=== PATIENT | female | born 1935 | race Caucasian/White ===

== ENCOUNTER 2016-06-19 08:36 | Emergency (ER) | payer MEDICARE, BC ==
--- NOTE | 2016-06-19 09:43 | EDM.PDOC ---
ED HPI GI/ABDOMINAL - General Chief Complaint: Gastrointestinal Problem Stated Complaint: [facility] Time Seen by Provider: 06/19/16 09:37 - History of Present Illness INITIAL COMMENTS - FREE TEXT/NARRATIVE: 81-year-old female presents to the emergency room with abdominal discomfort nausea vomiting diarrhea. She awoke around 4:30 this morning with some crampy left-sided abdominal discomfort or 7:00 this morning she had several episodes of loose stools they are watery. This was followed by significant nausea and a couple episodes of vomiting. Patient is doing much better after receiving Zofran by EMS. Patient denies any chest pain chest pressure breathing difficulties or shortness of breath. - Related Data Allergies/ADRs: Allergies Allergy/AdvReac Type Severity Reaction Status Date / Time acetaminophen [From Percocet] Allergy Dizziness Verified 06/19/16 08:50 aspirin Allergy Swollen Verified 06/19/16 08:50 Tongue ciprofloxacin Allergy Hallucinati Verified 06/19/16 08:50 ons codeine Allergy Vomiting Verified 06/19/16 08:50 hydrocodone Allergy Dizziness Verified 06/19/16 08:50 metronidazole [From Flagyl] Allergy Hallucinati Verified 06/19/16 08:50 ons mupirocin [From Bactroban] Allergy Rash Verified 06/19/16 08:50 oxycodone [From Percocet] Allergy Dizziness Verified 06/19/16 08:50 Sulfa (Sulfonamide Allergy Vomiting Verified 06/19/16 08:50 Antibiotics) Tetracyclines Allergy Hives Verified 06/19/16 08:50 aerival Allergy Other Uncoded 05/12/16 18:16 deludin Allergy Airway Uncoded 05/12/16 18:16 Tightness hycosamine Allergy Dizziness Uncoded 05/12/16 18:16 Home Meds: Home Meds Atenolol 25 mg PO DAILY 05/12/16 [History] Levothyroxine [Synthroid] 50 mcg PO ACBREAKFAST 05/12/16 [History] Potassium Chloride 20 meq PO TID 05/12/16 [History] Pravastatin Sodium [Pravastatin (Pravachol)] 40 mg PO BEDTIME 05/12/16 [History] Triamterene/Hydrochlorothiazid [Triamterene-HCTZ 37.5-25 MG] 1 tab PO DAILY [History] Ca Citrate/Mgox/Vit D3/B6/Min [Calcium Citrate Plus Tablet] 1 tab PO DAILY 06/19 [History] Magnesium 400 mg PO DAILY 06/19/16 [History] Multivitamin [Multi-Vitamin Daily] 1 tab PO DAILY 06/19/16 [History] Omeprazole 20 mg PO DAILY 06/19/16 [History] Ondansetron [Zofran ODT] 4 mg PO Q8H PRN #6 tab.dis 06/19/16 [Rx] Past Medical History HEENT History: Reports: Cataract Other HEENT History: wears glasses Cardiovascular History: Reports: High cholesterol, Hypertension Gastrointestinal History: Reports: Diverticulosis, GERD, Hiatal hernia Musculoskeletal History: Reports: Osteoarthritis Endocrine/Metabolic History: Reports: Hypothyroidism - Past Surgical History GI Surgical History: Reports: Appendectomy, Cholecystectomy, Colonoscopy Other GI Surgeries/Procedures: hemmorhoidectomy Female Surgical History: Reports: Hysterectomy Social & Family History - Tobacco Use Smoking Status *Q: Never Smoker Second Hand Smoke Exposure: No - Caffeine Use Caffeine Use: Reports: Coffee - Recreational Drug Use Recreational Drug Use: No ED ROS GENERAL - Review of Systems Review Of Systems: See Below Constitutional: Denies: fever, chills HEENT: Reports: No symptoms Respiratory: Reports: No Symptoms Cardiovascular: Reports: No symptoms GI/Abdominal: Reports: Abdominal pain (Has mild cramping but otherwise has not had any pain she does not have any pain at this time), Diarrhea, Nausea, Vomiting. Denies: Constipation : Reports: no symptoms Musculoskeletal: Reports: no symptoms Neurological: Reports: No Symptoms ED EXAM, GI/ABD - Physical Exam Exam: See Below Exam Limited By: No limitations General Appearance: alert, no apparent distress, other (Patient brought in by EMS vital signs stable she is doing much better after receiving Zofran during transport) Head: atraumatic, normocephalic Neck: normal inspection, supple, non-tender, full range of motion Respiratory/Chest: no respiratory distress, lungs clear, normal breath sounds Cardiovascular: regular rate, rhythm, no edema, systolic murmur (One to 2/6 systolic murmur heard best in the right upper sternal border this is not new.) GI/Abdominal: normal bowel sounds, soft, non tender, no distention. No: tenderness, distention, guarding, rebound Back Exam: normal inspection. No: CVA tenderness (L), CVA tenderness (R) Course - Vital Signs Last Recorded V/S: Last Vital Signs Temp 36.3 C 06/19/16 08:44 Pulse 59 L 06/19/16 08:44 Resp 12 06/19/16 08:44 BP 157/65 H 06/19/16 08:44 Pulse Ox 96 06/19/16 08:44 - Orders/Labs/Meds Orders: Active Orders 24 hr Category Date Time Status CULTURE URINE [RM] Stat Lab 06/19/16 11:56 Uncollected Lactated Ringers [Ringers, Lactated] 1,000 ml Med 06/19/16 09:45 Active IV ASDIRECTED Medication Orders Lactated Ringer's (Ringers, Lactated) 1,000 mls @ 125 mls/hr IV ASDIRECTED ISABELLA Last Admin: 06/19/16 10:15 Dose: 125 mls/hr Labs: Laboratory Tests 06/19/16 06/19/16 06/19/16 Range/Units 10:12 10:12 11:25 WBC 10.54 H (3.98-10.04) K/mm3 RBC 5.01 (3.98-5.22) M/mm3 Hgb 14.3 (11.2-15.7) gm/L Hct 42.2 (34.1-44.9) % MCV 84.2 (79.4-94.8) fl MCH 28.5 (25.6-32.2) pg MCHC 33.9 (32.2-35.5) g/dl RDW Std Deviation 42.8 (36.4-46.3) fL Plt Count 165 L (182-369) K/mm3 MPV 10.6 (9.4-12.3) fl Neutrophils % (Manual) 77 H (40-60) % Band Neutrophils % 8 (0-10) % Lymphocytes % (Manual) 10 L (20-40) % Atypical Lymphs % 0 % Monocytes % (Manual) 3 (2-10) % Eosinophils % (Manual) 1 (0.7-5.8) % Basophils % (Manual) 1 (0.1-1.2) Platelet Estimate Adequate RBC Morph Comment Normal Sodium 138 (136-145) mEq/L Potassium 4.3 (3.5-5.1) mEq/L Chloride 104 (98-107) mEq/L Carbon Dioxide 26 (21-32) mEq/L Anion Gap 12.3 (5-15) BUN 24 H (7-18) mg/dL Creatinine 0.9 (0.55-1.02) mg/dL Est Cr Clr Drug Dosing 43.77 mL/min Estimated GFR (MDRD) > 60 (>60) mL/min BUN/Creatinine Ratio 26.7 H (14-18) Glucose 106 (83-115) mg/dL Calcium 9.2 (8.5-10.1) mg/dL Total Bilirubin 0.5 (0.2-1.0) mg/dL AST 22 (15-37) U/L ALT 28 (14-59) U/L Alkaline Phosphatase 63 (46-116) U/L Total Protein 6.8 (6.4-8.2) g/dl Albumin 3.8 (3.4-5.0) g/dl Globulin 3.0 gm/dL Albumin/Globulin Ratio 1.3 (1-2) Urine Color Yellow (Yellow) Urine Appearance Clear (Clear) Urine pH 6.0 (5.0-8.0) Ur Specific [place] 1.020 (1.005-1.030) Urine Protein Negative (Negative) Urine Glucose (UA) Negative (Negative) Urine Ketones Negative (Negative) Urine Occult Blood Negative (Negative) Urine Nitrite Negative (Negative) Urine Bilirubin Negative (Negative) Urine Urobilinogen 0.2 (0.2-1.0) Ur Leukocyte Esterase 1+ H (Negative) Urine RBC Not seen (0-5) /hpf Urine WBC 5-10 H (0-5) /hpf Ur Epithelial Cells 0-5 (0-5) /hpf Urine Bacteria Few (FEW) /hpf Urine Mucus Few (FEW) /hpf Meds: Medications Generic Name Dose Route Start Last Admin Trade Name Freq PRN Reason Stop Dose Admin Lactated Ringer's 1,000 mls @ 125 mls/hr 06/19/16 09:45 06/19/16 10:15 Ringers, Lactated IV 125 mls/hr ASDIRECTED [facility] Administration - Re-Assessments/Exams Free Text/Narrative Re-Assessment/Exam: 06/19/16 12:01 Patient is received fluids and continues to feel much better. Labs are possibly suspicious of an early urinary tract infection. The patient is not having any symptoms consistent with UTI at this point it would like to hold off on therapy as she has multiple reactions to many different medications will await culture and sensitivity prior to initiating therapy and the patient agrees to followup with her regular physician on Sunday. Departure - Departure Time of Disposition: 12:02 Disposition: Home, Self-Care 01 Clinical Impression: Gastroenteritis Prescriptions: Ondansetron [Zofran ODT] 4 mg PO Q8H PRN #6 tab.dis PRN Reason: Nausea/Vomiting Forms: ED Department Discharge Additional Instructions: Return to the emergency room with any questions or problems. Continue your probiotics. You've been given a prescription for Zofran to help with nausea and vomiting use as directed as needed. Your urine is possibly suggestive of a UTI cultures are pending. Followup with your regular physician on Sunday for recheck. Clear liquid diet for the next 24 hours then slowly advance as tolerated. - My Orders Last 24 Hours: My Active Orders 06/19/16 09:45 Lactated Ringers [Ringers, Lactated] 1,000 ml IV ASDIRECTED 06/19/16 11:56 CULTURE URINE [RM] Stat - Assessment/Plan Last 24 Hours: My Active Orders 06/19/16 09:45 Lactated Ringers [Ringers, Lactated] 1,000 ml IV ASDIRECTED 06/19/16 11:56 CULTURE URINE [RM] Stat
[2016-06-19] MEDS ORDERED: Lactated Ringers 1,000 ML IV SCH (09:45)
--- NOTE | 2016-06-19 10:27 | CR ---
Abdomen: Supine and upright views of the abdomen were obtained. Comparison: No previous study. Surgical clips are seen from prior cholecystectomy. Calcifications are seen within the pelvis which are compatible with phleboliths. Bony structures appear within normal limits for the patient's age. No free air is seen. Bowel gas pattern appears normal. Impression: 1. Incidental findings. Diagnostic code #2
[2016-06-19 12:21] VITALS: BP 110/70
== END 2016-06-19 12:21 | disposition home or self-care (01) ==
LOC: JD.ED 08:36 → SUPCPDRO 08:36 → JD.ED 12:21
DX: K52.9 Noninfective gastroenteritis and colitis, unspecified (principal); E78.00 Pure hypercholesterolemia, unspecified; I10 Essential (primary) hypertension; K21.9 Gastro-esophageal reflux disease without esophagitis; E03.9 Hypothyroidism, unspecified; K44.9 Diaphragmatic hernia without obstruction or gangrene; Z79.899 Other long term (current) drug therapy; Z88.8 Allergy status to other drugs, medicaments and biological substances
CPT/HCPCS: 36415; 74020; 80053; 81001; 85025; 87086; 87804; 96360; 96361; 99285; J7120; 99283

== ENCOUNTER 2020-11-10 16:55 | Emergency (ER) | payer MEDICARE, BC ==
[2020-11-10] MEDS ORDERED: Aspirin 81 MG Tab.Chew PO ONE (17:48)
--- NOTE | 2020-11-10 17:48 | EDM.PDOC ---
ED HPI GENERAL MEDICAL PROBLEM - General Chief Complaint: Cardiovascular Problem Stated Complaint: SENT BY DR TILLEY Time Seen by Provider: 11/10/20 17:43 Source of Information: Reports: Patient, Family (friend) History Limitations: Reports: No Limitations - History of Present Illness INITIAL COMMENTS - FREE TEXT/NARRATIVE: 85-year-old female presents to the ED for evaluation of central chest pain which she describes as burning in nature which started last evening about 1900 hrs. and lasted until 2200 hrs. When she awoke this morning she still had faint retrosternal chest discomfort. Further history suggested she has been developing this chest pain on minimal exertion over the last week to 12 days. It goes away usually when she rests. Last night was the most severe the pain has ever been and lasted the longest( 3hrs) and was unprovoked. She is scheduled for an ECG stress test tomorrow. She is known to have valvular heart disease and has seen Dr. Cruz ,scudding inspector from [place] yearly for the last 2 to 3 years. She states she did have an echocardiogram within the last 18 months. No previous history of myocardial infarction or stroke. Patient is al so been struggling with a lot of gastroesophageal reflux disease. She takes omeprazole on a as needed basis which is not all that helpful. She did describe the central chest pain that radiate up into her neck and mandible bilaterally as a burning discomfort. She did not take any aspirin last evening. She did see Dr. Stevenson in [facility] today and labs are coming back abnormal. After she left the clinic he later called her and advised her to come to the emergency room for evaluation. On review of the notes sent up by Dr. Stevenson ,her troponin I is listed as markedly elevated at 6.238. The patient is pain-free at present. ECG done now reveals T wave inversion in the inferior wall with Q waves in leads III and aVF suggesting inferior wall ischemia but there is no significant change in the baseline to suggest acuity. Patient will be treated like a non-STEMI. She will be given aspirin 324 mg chewed. She will be started on heparin infusion with 4000 unit bolus and then 1000 units an hour. Onset: Sudden Onset Date: 11/09/20 Onset Time: 19:00 (And was very intense until about 2200 hrs.) Duration: Hour(s):, Constant (Was caused and then slowly abated overnight.) Location: Reports: Chest (Central chest burning discomfort radiating across left and right anterior chest and up into her neck and throat and mandible. She does not remember he went through to her back at all.) Quality: Reports: Ache, Burning, Pressure Severity: Severe (Pain last night was 10 of the 10. Currently she rates her current chest discomfort is perhaps a 1 out of 10.) Improves with: Reports: Other (Pain abated overnight on its own.) Worsens with: Reports: Movement (Walking a short distance will bring the chest pain back. Highly unstable angina.) Context: Reports: Other (Last night pain occurred at rest. Usually it has been occurring on minimal exertion such as a short walk or even getting dressed.). Denies: Activity, Exercise, Lifting, Sick Contact, Trauma Associated Symptoms: Reports: Chest Pain, Loss of Appetite, Shortness of Breath (Mild). Denies: Confusion, Cough, cough w sputum (History of present illness), Diaphoresis, Fever/Chills, Headaches, Malaise, Nausea/Vomiting, Rash, Seizure, Syncope, Weakness Treatments CIVIL ENGINEER HELPER: Reports: Other (see below) (Nothing other than what she is pr escribed.) - Related Data Allergies Allergy/AdvReac Type Severity Reaction Status Date / Time acetaminophen [From Percocet] Allergy Dizziness Verified 11/10/20 17:08 aspirin Allergy Swollen Verified 11/10/20 17:08 Tongue ciprofloxacin Allergy Hallucinati Verified 11/10/20 17:08 ons codeine Allergy Vomiting Verified 11/10/20 17:08 hydrocodone Allergy Dizziness Verified 11/10/20 17:08 metronidazole [From Flagyl] Allergy Hallucinati Verified 11/10/20 17:08 ons mupirocin [From Bactroban] Allergy Rash Verified 11/10/20 17:08 oxycodone [From Percocet] Allergy Dizziness Verified 11/10/20 17:08 Sulfa (Sulfonamide Allergy Vomiting Verified 11/10/20 17:08 Antibiotics) Tetracyclines Allergy Hives Verified 11/10/20 17:08 aerival Allergy Other Uncoded 11/10/20 17:08 deludin Allergy Airway Uncoded 11/10/20 17:08 Tightness hycosamine Allergy Dizziness Uncoded 11/10/20 17:08 Home Meds: Home Meds Levothyroxine [Synthroid] 50 mcg PO ACBREAKFAST 05/12/16 [History] Potassium Chloride 20 meq PO TID 05/12/16 [History] Pravastatin Sodium [Pravastatin (Pravachol)] 40 mg PO BEDTIME 05/12/16 [History] Triamterene/Hydrochlorothiazid [Triamterene-HCTZ 37.5-25 MG] 1 tab PO DAILY 05/12/16 [History] atenoloL [Atenolol] 25 mg PO DAILY 05/12/16 [History] Calcium Cit/Mgox/Vit D3/B6/Min [Calcium Citrate Plus Tablet] 1 tab PO DAILY 06/19/16 [History] Magnesium 400 mg PO ASDIRECTED 06/19/16 [History] Multivitamin [Multi-Vitamin Daily] 1 tab PO DAILY 06/19/16 [History] Omeprazole 20 mg PO DAILY 06/19/16 [History] Sertraline [Zoloft] 25 mg PO DAILY 11/10/20 [History] Past Medical History HEENT History: Reports: Cataract Other HEENT History: wears glasses Cardiovascular History: Reports: CAD, Heart Murmur (Patient does have known valvular heart disease with mitral insufficiency and aortic stenosis.), High Cholesterol, Hypertension. Denies: Heart Failure Gastrointestinal History: Reports: Diverticulosis, GERD (Seems to be worsened as of late.), Hiatal Hernia SPECIAL EDUCATION DIRECTOR History: Reports: Musculoskeletal History: Reports: Osteoarthritis Psychiatric History: Reports: Anxiety Endocrine/Metabolic History: Reports: Hypothyroidism - Past Surgical History GI Surgical History: Reports: Appendectomy, Cholecystectomy, Colonoscopy Other GI Surgeries/Procedures: hemmorhoidectomy Female Surgical History: Reports: Hysterectomy Social & Family History - Tobacco Use Tobacco Use Status *Q: Never Tobacco User Second Hand Smoke Exposure: No - Caffeine Use Caffeine Use: Reports: Coffee - Recreational Drug Use Recreational Drug Use: No - Living Situation & Occupation Living situation: Reports: Occupation: Retired ED ROS GENERAL - Review of Systems Review Of Systems: See Below Constitutional: Reports: Malaise, Fatigue, Decreased Appetite (Labs mildly decreased today.). Denies: Fever, Chills, Weight Loss HEENT: Reports: Glasses Respiratory: Reports: Shortness of Breath, Cough. Denies: Wheezing, Pleuritic Chest Pain, Sputum, Hemoptysis Cardiovascular: Reports: Chest Pain (Diffuse central chest discomfort radiating across both right left upper anterior chest into her neck and mandible last evening.), Blood Pressure Problem, Dyspnea on Exertion. Denies: Claudication, Edema, Lightheadedness, Orthopnea, Palpitations Endocrine: Reports: Fatigue GI/Abdominal: Reports: Constipation (Occasional problems), Other (She feels she gets heartburn on a daily basis.). Denies: Black Stool, Bloody Stool : Reports: Frequency, Incontinence (Urgent stress components.) Musculoskeletal: Reports: Neck Pain (occassional), Shoulder Pain (occassional), Back Pain, Joint Pain (Knees and hips at times.) Skin: Reports: No Symptoms Neurological: Reports: No Symptoms. Denies: Confusion, Dizziness, Headache, Pre-Existing Deficit, Seizure, Syncope, Trouble Speaking, Difficulty Walking, Weakness Psychiatric: Reports: No Symptoms Hematologic/Lymphatic: Reports: No Symptoms Immunologic: Reports: No Symptoms ED EXAM, GENERAL - Physical Exam Exam: See Below Exam Limited By: No Limitations General Appearance: Alert, WD/WN, No Apparent Distress, Anxious (Mildly anxious of course having been called by her primary care provider to come to the emergency room emergently.), Other (Temperature is 36.3 degrees. Heart rate was 67 and sinus. Respiratory 16 with O2 sats of 97% room air. Initial BP was mildly elevated at 162/78. It did come down to 126/73.) Eye Exam: Bilateral Eye: Normal Inspection (Previous cataract extractions and intraocular lens implants.), PERRL Throat/Mouth: Normal Inspection, Normal Lips, Normal Oropharynx. No: Normal Teeth Head: Atraumatic, Normocephalic Neck: Normal Inspection, Carotid Bruit (Faint right carotid artery bruit felt to be transmitted from aortic stenosis murmur), Limited Range of Motion (She has loss of 10 degrees lateral flexion and rotation. Also loss of 10 degrees flexion). No: Lymphadenopathy (L), Lymphadenopathy (R), Thyromegaly Respiratory/Chest: No Respiratory Distress, Normal Breath Sounds, No Accessory Muscle Use, Rales Cardiovascular: Normal Peripheral Pulses, Regular Rate, Rhythm, No Edema, No Gallop, No Murmur Peripheral Pulses: 2+: Carotid (L), Carotid (R), Posterior Tibial (L), Posterior Tibial (R), Dorsalis Pedis (L), Dorsalis Pedis (R) GI/Abdominal: Normal Bowel Sounds, Soft, Non-Tender, No Organomegaly, No Mass, Pelvis Stable Back Exam: Other (Mild kyphosis thoracic spine.). No: CVA Tenderness (L), CVA Tenderness (R), Paraspinal Tenderness, Vertebral Tenderness Extremities: Non-Tender, Other (Diminished internal and external rotation of both hips. Evidence of osteoarthritic changes both knees but neither joint is warm to palpation at this time) Neurological: Alert, Oriented, CN II-XII Intact, Normal Cognition Psychiatric: Normal Affect, Normal Mood Skin Exam: Warm, Dry, Intact, Normal Color #1 Interpretation EKG Date: 11/10/20 Time: : Rhythm: NSR Rate (Beats/Min): 68 [place]: LAD-Left [place] Deviation (Mild left axis deviation -10 degrees) P-Wave: Present (T wave inverted in leads V1 and V2 nonspecific finding left atrial hypertrophy) QRS: Other (Early R wave transition consider septal hypertrophy pattern there is left ventricular hypertrophy pattern Q waves appreciated leads III and aVF consider old inferior wall myocardial infarction associated with T wave inversion leads III and aVF.) ST-T: Other (T wave inversion in leads III and aVF) QT: Normal EKG Interpretation Comments: Abnormal ECG Course - Vital Signs Last Recorded V/S: Last Vital Signs Temp 36.3 C 11/10/20 17:06 Pulse 67 11/10/20 17:06 Resp 16 11/10/20 17:06 BP 162/78 H 11/10/20 17:06 Pulse Ox 97 11/10/20 17:06 - Orders/Labs/Meds Orders: Active Orders 24 hr Category Date Time Status Chest 1V Frontal [CR] Stat Exams 11/10/20 17:44 Taken CULTURE URINE [MREF] Stat Lab 11/10/20 19:19 Ordered Heparin Sodium/D5W [Heparin 25,000 Units in D5W 500 ML] Med 11/10/20 18:00 Active 25,000 units in 500 ml IV TITRATE Medication Orders Heparin Sodium/Dextrose (Heparin 25,000 Units In D5w 500 Ml) 25,000 units in 500 mls @ 20 mls/hr IV TITRATE ISABELLA Last Admin: 11/10/20 18:13 Dose: 1,000 units/hr, 20 mls/hr Documented by: RASHID Cosigned by: SHEREE Labs: Laboratory Tests 11/10/20 11/10/20 11/10/20 Range/Units 17:15 17:15 17:15 WBC 7.54 (3.98-10.04) K/mm3 RBC 5.05 (3.98-5.22) M/mm3 Hgb 13.7 (11.2-15.7) gm/dl Hct 42.8 (34.1-44.9) % MCV 84.8 (79.4-94.8) fl MCH 27.1 (25.6-32.2) pg MCHC 32.0 L (32.2-35.5) g/dl RDW Std Deviation 46.3 (36.4-46.3) fL Plt Count 232 (182-369) K/mm3 MPV 11.2 (9.4-12.3) fl Neut % (Auto) 65.8 (34.0-71.1) % Lymph % (Auto) 23.9 (19.3-51.7) % Frederick % (Auto) 8.1 (4.7-12.5) % Eos % (Auto) 1.6 (0.7-5.8) Baso % (Auto) 0.5 (0.1-1.2) % Neut # (Auto) 4.96 (1.56-6.13) K/mm3 Lymph # (Auto) 1.80 (1.18-3.74) K/mm3 Frederick # (Auto) 0.61 H (0.24-0.36) K/mm3 Eos # (Auto) 0.12 (0.04-0.36) K/mm3 Baso # (Auto) 0.04 (0.01-0.08) K/mm3 PT 10.7 (9.7-12.0) SECONDS INR 1.00 APTT 29.1 (21.7-31.4) SECONDS Sodium 139 (136-145) mEq/L Potassium 3.5 (3.5-5.1) mEq/L Chloride 103 (98-107) mEq/L Carbon Dioxide 26 (21-32) mEq/L Anion Gap 13.5 (5-15) BUN 14 (7-18) mg/dL Creatinine 0.9 (0.55-1.02) mg/dL Est Cr Clr Drug Dosing 40.90 mL/min Estimated GFR (MDRD) 60 (>60) mL/min BUN/Creatinine Ratio 15.6 (14-18) Glucose 140 H (70-99) mg/dL Calcium 9.3 (8.5-10.1) mg/dL Magnesium 1.5 L (1.8-2.4) mg/dL Total Bilirubin 0.4 (0.2-1.0) mg/dL AST 43 H (15-37) U/L ALT 33 (14-59) U/L Alkaline Phosphatase 104 (46-116) U/L CK-MB (CK-2) 23.6 H (0-3.6) ng/ml Troponin I 6.180 H* (0.00-0.056) ng/mL C-Reactive Protein 0.2 (<1.0) mg/dL NT-Pro-B Natriuret Pep (0-450) pg/mL Total Protein 7.1 (6.4-8.2) g/dl Albumin 3.7 (3.4-5.0) g/dl Globulin 3.4 gm/dL Albumin/Globulin Ratio 1.1 (1-2) Urine Color (Yellow) Urine Appearance (Clear) Urine pH (5.0-8.0) Ur Specific Addison (1.005-1.030) Urine Protein (Negative) Urine Glucose (UA) (Negative) Urine Ketones (Negative) Urine Occult Blood (Negative) Urine Nitrite (Negative) Urine Bilirubin (Negative) Urine Urobilinogen (0.2-1.0) Ur Leukocyte Esterase (Negative) Urine RBC (0-5) /hpf Urine WBC (0-5) /hpf Ur Squamous Epith Cells (0-5) /hpf Urine Bacteria (FEW) /hpf Urine Mucus (FEW) /hpf SARS-CoV-2 RNA (KVNG) (NEGATIVE) 11/10/20 11/10/20 11/10/20 Range/Units 17:15 18:20 18:20 WBC (3.98-10.04) K/mm3 RBC (3.98-5.22) M/mm3 Hgb (11.2-15.7) gm/dl Hct (34.1-44.9) % MCV (79.4-94.8) fl MCH (25.6-32.2) pg MCHC (32.2-35.5) g/dl RDW Std Deviation (36.4-46.3) fL Plt Count (182-369) K/mm3 MPV (9.4-12.3) fl Neut % (Auto) (34.0-71.1) % Lymph % (Auto) (19.3-51.7) % Frederick % (Auto) (4.7-12.5) % Eos % (Auto) (0.7-5.8) Baso % (Auto) (0.1-1.2) % Neut # (Auto) (1.56-6.13) K/mm3 Lymph # (Auto) (1.18-3.74) K/mm3 Frederick # (Auto) (0.24-0.36) K/mm3 Eos # (Auto) (0.04-0.36) K/mm3 Baso # (Auto) (0.01-0.08) K/mm3 PT (9.7-12.0) SECONDS INR APTT (21.7-31.4) SECONDS Sodium (136-145) mEq/L Potassium (3.5-5.1) mEq/L Chloride (98-107) mEq/L Carbon Dioxide (21-32) mEq/L Anion Gap (5-15) BUN (7-18) mg/dL Creatinine (0.55-1.02) mg/dL Est Cr Clr Drug Dosing mL/min Estimated GFR (MDRD) (>60) mL/min BUN/Creatinine Ratio (14-18) Glucose (70-99) mg/dL Calcium (8.5-10.1) mg/dL Magnesium (1.8-2.4) mg/dL Total Bilirubin (0.2-1.0) mg/dL AST (15-37) U/L ALT (14-59) U/L Alkaline Phosphatase (46-116) U/L CK-MB (CK-2) (0-3.6) ng/ml Troponin I (0.00-0.056) ng/mL C-Reactive Protein (<1.0) mg/dL NT-Pro-B Natriuret Pep 1606 H (0-450) pg/mL Total Protein (6.4-8.2) g/dl Albumin (3.4-5.0) g/dl Globulin gm/dL Albumin/Globulin Ratio (1-2) Urine Color Yellow (Yellow) Urine Appearance Clear (Clear) Urine pH 6.0 (5.0-8.0) Ur Specific Addison 1.020 (1.005-1.030) Urine Protein Negative (Negative) Urine Glucose (UA) Negative (Negative) Urine Ketones Negative (Negative) Urine Occult Blood Negative (Negative) Urine Nitrite Negative (Negative) Urine Bilirubin Negative (Negative) Urine Urobilinogen 0.2 (0.2-1.0) Ur Leukocyte Esterase 1+ H (Negative) Urine RBC 0-5 (0-5) /hpf Urine WBC 5-10 H (0-5) /hpf Ur Squamous Epith Cells 0-5 (0-5) /hpf Urine Bacteria Few (FEW) /hpf Urine Mucus Not seen (FEW) /hpf SARS-CoV-2 RNA (KVNG) Negative (NEGATIVE) Meds: Medications Generic Name Dose Route Start Last Admin Trade Name Freq PRN Reason Stop Dose Admin Heparin Sodium/Dextrose 25,000 units in 500 mls @ 20 mls/hr 11/10/20 18:00 11/10/20 18:13 Heparin 25,000 Units In D5w 500 Ml IV 1,000 units/hr TITRATE ISABELLA 20 mls/hr Administration 1,000 UNITS/HR Discontinued Medications Generic Name Dose Route Start Last Admin Trade Name Freq PRN Reason Stop Dose Admin Aspirin 324 mg 11/10/20 17:48 11/10/20 18:03 Aspirin 81 Mg Tab.Chew PO 11/10/20 17:49 324 mg ONETIME ONE Administration Heparin Sodium (Porcine) 4,000 units 11/10/20 17:56 11/10/20 18:12 Heparin Sodium 5,000 Units/Ml Vial IVPUSH 11/10/20 17:57 4,000 units .BOLUS ONE Administration - Radiology Interpretation Free Text/Narrative:: 85-year-old female presents to the ED for evaluation of suspect non-STEMI. She was seen earlier this p.m. by her primary care practitioner . She had minimal changes on her ECG. Her history however is that of gradually worsening angina with instability over the last 10 to 12 days. Last night she experienced significant diffuse central chest pain both left and right sides of her chest rating up into her neck and throat and mandible that lasted at least 3 hours. She still had a bit of central chest discomfort when she awoke this morning. Lab test done at the clinic came back after the patient had been discharged home and revealed a markedly elevated troponin I of 6.24. - Re-Assessments/Exams Free Text/Narrative Re-Assessment/Exam: 11/10/20 18:30: X-ray done portably reveals heart to be within normal limits. Mediastinum is normal. There is very slight tortuosity of the thoracic aorta. There is perhaps a mild mild diffuse vascular congestion pattern. Query trace pleural effusion on the left side. No pneumothorax. Free Text/Narrative Re-Assessment/Exam: 11/10/20 19:15 White count is normal at 7.54. The auto differential shows 65.8% neutrophils. Hemoglobin is 13.7 with hematocrit of 42.8. Platelet count is 232,000. PT is 10.7. INR is 1.0. PTT is 29.1. Sodium is 139. Potassium 3.5. Chloride 103 with a bicarb of 26. Anion gap is 13.5. BUN is 14 with a creatinine of 0.9 and a GFR of 60. Glucose is 140 calcium is 9.3 magnesium is low at 1.5. Bilirubin is 0.4 AST minimally elevated at 43. ALT normal at 33 alkaline phosphatase normal at 104. CK-MB fraction is markedly elevated at 23.6 and troponin I is 6.180. This suggests recent myocardial infarction within the last 24 hours. C-reactive protein is 0.2 BNP is 1606. Total protein 7.1 with an albumin fraction of 3.7. Urinalysis shows 1+ leukocyte esterase with 5-10 WBCs per high-power field. Urine will be sent for culture. Patient is asymptomatic and will not be treated at this time for urinary tract infection with antibiotics. Patient is indeed suffering a non-STEMI myocardial infarction likely involving the inferior wall. She will require admission to a tertiary care center for cardiology consultation and management. She is very spry and cognitively intact for her age. She lives alone and looks after her yard and garden on her own. I will try and make arrangements to find a bed in [place] at this time. She will be heparinized with 4000 unit bolus and then 1000 units an hour. She has received aspirin 81 mg chewed. Currently she minimizes her pain stating it is barely there at all. Her blood pressure is come down a good deal since coming into the emergency room. It is currently 121/83. Magnesium is low and I will arrange a magnesium infusion 4 g over 4 hours. This was placed in 50 mils of D5 W. 11/10/20 19:35: I was able to speak through the 1 call service at [facility] in [place] and a bed is available. This appears to be the last bed they have in their hospital. [facility] in [place] is on diversion. Patient has been accepted by Dr. Roland on-call hospitalist and the patient be transferred to that facility per ground ambulance as soon as able. On my reevaluation after speaking with the hospitalist patient is still complaining of mild burning discomfort central chest rating up into her throat intermittently. I am therefore going to start her on low-dose nitroglycerin drip at 5 mcg/min as her blood pressure will not take much of a higher dose. Lowering her blood pressure further would compromise perfusion of her coronary arteries. 11/10/20 20:10: Patient just left the emergency department in route to [facility]. Departure - Departure Time of Disposition: 20:05 Disposition: DC/Tfer to Acute Hospital 02 Reason for Transfer *Q: Other Condition: Fair Clinical Impression: Elevated troponin I measurement, Hypomagnesemia, Mild congestive heart failure, Mitral insufficiency and aortic stenosis Acute myocardial infarction Qualifiers: Myocardial infarction type: non-ST elevation myocardial infarction Qualified Code(s): I21.4 - Non-ST elevation (NSTEMI) myocardial infarction Referrals: Yunier Tilley MD [Primary Care Provider] - Forms: ED Department Discharge Additional Instructions: Patient was transferred to [facility] in [place] as this was the only bed available in all [facility] at this time. She has seen in [facility] in the past. She has records at both hospitals. Sepsis Event Note (ED) - Evaluation Sepsis Screening Result: No Definite Risk - Focused Exam Vital Signs: Vital Signs Temp Pulse Resp BP Pulse Ox 11/10/20 17:06 36.3 C 67 16 162/78 H 97 - My Orders Last 24 Hours: My Active Orders 11/10/20 17:44 Chest 1V Frontal [CR] Stat 11/10/20 18:00 Heparin Sodium/D5W [Heparin 25,000 Units in D5W 500 ML] 25,000 units in 500 ml IV TITRATE 11/10/20 19:19 CULTURE URINE [MREF] Stat - Assessment/Plan Last 24 Hours: My Active Orders 11/10/20 17:44 Chest 1V Frontal [CR] Stat 11/10/20 18:00 Heparin Sodium/D5W [Heparin 25,000 Units in D5W 500 ML] 25,000 units in 500 ml IV TITRATE 11/10/20 19:19 CULTURE URINE [MREF] Stat
[2020-11-10] MEDS ORDERED: Heparin Sodium 5,000 Units/ML Vial IVPUSH ONE (17:56)
[2020-11-10] MEDS ORDERED: Heparin Sodium/D5W 25,000 UNITS/500 ML BAG IV SCH (18:00)
[2020-11-10] MEDS ORDERED: Magnesium Sulfate/Water 4 GM in Premix Bag 1 BAG IV ONE (19:40)
[2020-11-10] MEDS ORDERED: Nitroglycerin/D5W 25 MG/250 ML BOTTLE IV SCH (19:45)
--- NOTE | 2020-11-10 19:48 | CR ---
Chest: Portable view of the chest was obtained. Comparison: Prior chest x-ray of 05/12/16. Heart size and mediastinum are within normal limits for portable technique. Lungs are clear with no acute parenchymal change. No acute osseous abnormality is appreciated. Impression: 1. Nothing acute is seen on portable chest x-ray. Diagnostic code #1
[2020-11-10 21:01] VITALS: BP 132/78; PULSE 73
== END 2020-11-10 20:30 ==
LOC: JD.ED 16:55
DX: I21.4 Non-ST elevation (NSTEMI) myocardial infarction (principal); R79.89 Other specified abnormal findings of blood chemistry; E83.42 Hypomagnesemia; I11.0 Hypertensive heart disease with heart failure; I50.9 Heart failure, unspecified; I34.0 Nonrheumatic mitral (valve) insufficiency; I35.0 Nonrheumatic aortic (valve) stenosis; R07.9 Chest pain, unspecified; I25.10 Atherosclerotic heart disease of native coronary artery without angina pectoris; E78.00 Pure hypercholesterolemia, unspecified; K21.9 Gastro-esophageal reflux disease without esophagitis; M19.90 Unspecified osteoarthritis, unspecified site; E03.9 Hypothyroidism, unspecified; R94.31 Abnormal electrocardiogram [ECG] [EKG]; Z88.6 Allergy status to analgesic agent; Z88.8 Allergy status to other drugs, medicaments and biological substances; Z88.1 Allergy status to other antibiotic agents; Z88.5 Allergy status to narcotic agent; Z88.2 Allergy status to sulfonamides; Z91.048 Other nonmedicinal substance allergy status; Z79.899 Other long term (current) drug therapy; Z20.822 Contact with and (suspected) exposure to COVID-19
CPT/HCPCS: 36415; 71045; 80053; 81001; 82553; 83735; 83880; 84484; 85025; 85610; 85730; 86140; 87086; 93005; 96365; 96366; 96368; 99285; A9270; J1644; J3475; J3490; U0002; 93010

== ENCOUNTER 2021-01-26 05:37 | Emergency (ER) | payer MEDICARE, BC ==
[2021-01-26 05:49] VITALS: BP 155/78; PULSE 60
[2021-01-26] MEDS ORDERED: Loperamide 2 MG Cap PO STA (06:17)
--- NOTE | 2021-01-26 06:24 | EDM.PDOC ---
ED HPI GENERAL MEDICAL PROBLEM - General Chief Complaint: Gastrointestinal Problem Stated Complaint: DIARRHEA Time Seen by Provider: 01/26/21 06:04 Source of Information: Reports: Patient, Family (Daughter) History Limitations: Reports: No Limitations - History of Present Illness INITIAL COMMENTS - FREE TEXT/NARRATIVE: Mrs. Barth is a very pleasant 85-year-old woman who now presents to the ED stating that she developed watery diarrhea around 23:00 last night, after eating some bread - she states that she has a history of celiac disease. She took a single tablet (2 mg) of loperamide, but has continued to have diarrhea, now a total of 8 episodes. She states that she is beginning to feel lightheaded when she stands up. She denies having nausea, vomiting, or abdominal pain. Here in the ED, the patient's initial BP is found to be modestly elevated at 155/78, otherwise, her vital signs are within normal limits. She is afebrile, saturating 96% on room air. She appears to be comfortable, in no acute distress. Prior to last night, the patient denies having a recent fever, chills, sore throat, ear pain, nasal or sinus congestion, cough, dyspnea, chest pain, palpitations, nausea, vomiting, constipation, diarrhea, abdominal pain, urinary symptoms, recent weight gain or weight loss, recent bloody bowel movements or black bowel movements, recent joint aches, headaches, or rashes. The patient's PCP is Dr. Yunier Hastings. Her Grinding Machine Operator is Dr. Jose Palomares. She has received 2 COVID vaccinations, plus an influenza vaccination this season. - Related Data Allergies Allergy/AdvReac Type Severity Reaction Status Date / Time acetaminophen [From Percocet] Allergy Severe Dizziness Verified 01/26/21 05:50 ciprofloxacin Allergy Severe Hallucinati Verified 01/26/21 05:50 ons codeine Allergy Severe Vomiting Verified 01/26/21 05:50 hydrocodone Allergy Severe Dizziness Verified 01/26/21 05:50 metronidazole [From Flagyl] Allergy Severe Hallucinati Verified 01/26/21 05:50 ons mupirocin [From Bactroban] Allergy Severe Rash Verified 01/26/21 05:50 oxycodone [From Percocet] Allergy Severe Dizziness Verified 01/26/21 05:50 Sulfa (Sulfonamide Allergy Severe Vomiting Verified 01/26/21 05:50 Antibiotics) Tetracyclines Allergy Severe Hives Verified 01/26/21 05:50 gluten AdvReac Severe Diarrhea Verified 01/26/21 06:08 aerival Allergy Severe Other Uncoded 01/26/21 05:50 deludin Allergy Severe Airway Uncoded 01/26/21 05:50 Tightness hycosamine Allergy Severe Dizziness Uncoded 01/26/21 05:50 Home Meds: Home Meds Levothyroxine [Synthroid] 50 mcg PO ACBREAKFAST 05/12/16 [History] Potassium Chloride 20 meq PO TID 05/12/16 [History] Pravastatin Sodium [Pravastatin (Pravachol)] 40 mg PO BEDTIME 05/12/16 [History] Triamterene/Hydrochlorothiazid [Triamterene-HCTZ 37.5-25 MG] 1 tab PO DAILY 05/12/16 [History] atenoloL [Atenolol] 25 mg PO DAILY 05/12/16 [History] Calcium Cit/Mgox/Vit D3/B6/Min [Calcium Citrate Plus Tablet] 1 tab PO DAILY 06/19/16 [History] Magnesium 400 mg PO ASDIRECTED 06/19/16 [History] Multivitamin [Multi-Vitamin Daily] 1 tab PO DAILY 06/19/16 [History] Omeprazole 20 mg PO DAILY 06/19/16 [History] Sertraline [Zoloft] 25 mg PO DAILY 11/10/20 [History] Past Medical History HEENT History: Reports: Impaired Vision (wears glasses) Cardiovascular History: Reports: CAD, High Cholesterol, Hypertension, NM (x 1) Gastrointestinal History: Reports: Diverticulosis (diverticulitis), GERD, Hiatal Hernia Musculoskeletal History: Reports: Osteoarthritis Psychiatric History: Reports: Anxiety Endocrine/Metabolic History: Reports: Hypothyroidism - Past Surgical History HEENT Surgical History: Reports: Cataract Surgery (bilateral), Oral Surgery (dental extractions) Cardiovascular Surgical History: Reports: Coronary Artery Stent (x 1) GI Surgical History: Reports: Appendectomy, Cholecystectomy (around 1999), Colonoscopy, Other (See Below) (Hemmorhoidectomy) Female Surgical History: Reports: Hysterectomy (complete) Musculoskeletal Surgical History: Reports: Shoulder Surgery (right, arthroscopic), Other (See Below) (Left foot neuroma excision) Social & Family History - Tobacco Use Tobacco Use Status *Q: Never Tobacco User - Caffeine Use Caffeine Use: Reports: Coffee - Alcohol Use Alcohol Use History: Yes Alcohol Use Frequency: Rarely - Recreational Drug Use Recreational Drug Use: No - Living Situation & Occupation Living situation: Reports: , with Family (Daughter) Occupation: Retired ED ROS GENERAL - Review of Systems Review Of Systems: Comprehensive ROS is negative, except as noted in HPI. ED EXAM, GI/ABD - Physical Exam Exam: See Below Exam Limited By: No Limitations General Appearance: Alert, WD/WN, No Apparent Distress Eyes: Bilateral: Normal Appearance, EOMI Ears: Normal External Exam, Hearing Grossly Normal Nose: Normal Inspection Throat/Mouth: Normal Inspection, Normal Lips, Normal Voice, No Airway Compromise Head: Atraumatic, Normocephalic Neck: Normal Inspection, Full Range of Motion Respiratory/Chest: No Respiratory Distress, Lungs Clear, Normal Breath Sounds, No Accessory Muscle Use Cardiovascular: Normal Peripheral Pulses, Regular Rate, Rhythm, No Edema, No Gallop, No JVD, No Murmur, No Rub, Systolic Murmur (soft, heard best at the LUSB) GI/Abdominal Exam: Normal Bowel Sounds, Soft, No Organomegaly, No Distention, No Abnormal Bruit, No Mass, Tender (Mild along the left side only. Nontender elsewhere.) Back Exam: Normal Inspection, Full Range of Motion, NT Extremities: Normal Inspection, Normal Range of Motion, No Pedal Edema, Normal Capillary Refill Neurological: Alert, Oriented, Normal Cognition, No Motor/Sensory Deficits Psychiatric: Normal Affect Skin Exam: Warm, Dry, Intact, Normal Color, No Rash Course - Vital Signs Last Recorded V/S: Last Vital Signs Temp 35.9 C L 01/26/21 05:45 Pulse 60 01/26/21 05:45 Resp 16 01/26/21 05:45 BP 155/78 H 01/26/21 05:45 Pulse Ox 96 01/26/21 05:45 Orthostatic Blood Pressure [ 142/66 Standing] Orthostatic Blood Pressure [ 125/57 Supine] - Orders/Labs/Meds Orders: Active Orders 24 hr Category Date Time Status Orthostatic Vital Signs [RC] STAT Care 01/26/21 06:17 Active CBC WITH MANUAL DIFF [HEME] Stat Lab 01/26/21 05:58 Results Labs: Laboratory Tests 01/26/21 01/26/21 Range/Units 05:58 05:58 WBC 6.91 (3.98-10.04) K/mm3 RBC 4.92 (3.98-5.22) M/mm3 Hgb 13.4 (11.2-15.7) gm/dl Hct 42.1 (34.1-44.9) % MCV 85.6 (79.4-94.8) fl MCH 27.2 (25.6-32.2) pg MCHC 31.8 L (32.2-35.5) g/dl RDW Std Deviation 47.8 H (36.4-46.3) fL Plt Count 273 (182-369) K/mm3 MPV 10.2 (9.4-12.3) fl Sodium 137 (136-145) mEq/L Potassium 4.2 (3.5-5.1) mEq/L Chloride 102 (98-107) mEq/L Carbon Dioxide 25 (21-32) mEq/L Anion Gap 14.2 (5-15) BUN 19 H (7-18) mg/dL Creatinine 0.9 (0.55-1.02) mg/dL Est Cr Clr Drug Dosing 40.90 mL/min Estimated GFR (MDRD) 60 (>60) mL/min BUN/Creatinine Ratio 21.1 H (14-18) Glucose 118 H (70-99) mg/dL Calcium 10.2 H (8.5-10.1) mg/dL Magnesium 2.0 (1.8-2.4) mg/dL Total Bilirubin 0.4 (0.2-1.0) mg/dL AST 25 (15-37) U/L ALT 33 (14-59) U/L Alkaline Phosphatase 87 (46-116) U/L Total Protein 7.1 (6.4-8.2) g/dl Albumin 3.6 (3.4-5.0) g/dl Globulin 3.5 gm/dL Albumin/Globulin Ratio 1.0 (1-2) Meds: Medications Discontinued Medications Generic Name Dose Route Start Last Admin Trade Name Freq PRN Reason Stop Dose Admin Loperamide HCl 2 mg 01/26/21 06:17 01/26/21 06:28 Loperamide 2 Mg Cap PO 01/26/21 06:18 2 mg ONETIME STA Administration - Re-Assessments/Exams Free Text/Narrative Re-Assessment/Exam: 01/26/21 06:19 I have ordered orthostatics and a few blood tests, to make sure that the patient does not have any significant fluid or electrolyte shifts that need to be corrected. In the meantime, she will be given 1 tablet (2 mg) of loperamide. 01/26/21 06:30 The patient is not orthostatic. 01/26/21 07:03 The patient's CBC is unremarkable. Her CMP is remarkable for a BUN slightly elevated at 19, with a Cr normal at 0.9, and slight hyperglycemia of 118, with the remainder of her CMP being unremarkable. Her magnesium level is within normal limits at 2.0. 01/26/21 07:06 Test results discussed with the patient and her daughter. As above, it does not appear that the patient has suffered any significant fluid or electrolyte abnormalities as a result of her diarrhea. She states that she is feeling better. I will discharge her home with recommendation that if she does develop additional diarrhea, she can take additional loperamide. Departure - Departure Time of Disposition: 07:07 Disposition: Home, Self-Care 01 Condition: Good Clinical Impression: Diarrhea - Discharge Information *PRESCRIPTION DRUG MONITORING PROGRAM REVIEWED*: Not Applicable *COPY OF PRESCRIPTION DRUG MONITORING REPORT IN PATIENT USAMA: Not Applicable Referrals: Yunier Hastings MD [Primary Care Provider] - Jose Palomares MD [Ordering Only Provider] - Forms: ED Department Discharge Additional Instructions: You were seen in the emergency room after developing watery diarrhea last night. Work-up in the ER included positional blood pressure checks and several blood tests, all of which were normal. You do not appear to have suffered any significant fluid or electrolyte shifts as a result of your diarrhea. You took 1 tablet of loperamide (Imodium) at home. You were given an additional tablet in the ER. Going forward, you may take 1 tablet (2 mg) of loperamide after each loose bowel movement, to a maximum of 8 tablets (16 mg) within a 24-hour period. Make sure that you stay adequately hydrated. Gatorade or Powerade are best. We recommend that you avoid juice and milk at this time, as they may make diarrhea worse. We recommend that you eat a bland diet until you are completely back to normal. If any other problems, please do not hesitate to return to the ER. Sepsis Event Note (ED) - Evaluation Sepsis Screening Result: No Definite Risk - Focused Exam Vital Signs: Vital Signs Temp Pulse Resp BP Pulse Ox 01/26/21 05:45 35.9 C L 60 16 155/78 H 96 - My Orders Last 24 Hours: My Active Orders 01/26/21 05:58 CBC WITH MANUAL DIFF [HEME] Stat 01/26/21 06:17 Orthostatic Vital Signs [RC] STAT - Assessment/Plan Last 24 Hours: My Active Orders 01/26/21 05:58 CBC WITH MANUAL DIFF [HEME] Stat 01/26/21 06:17 Orthostatic Vital Signs [RC] STAT
== END 2021-01-26 07:43 | disposition home or self-care (01) ==
LOC: JD.ED 05:37
DX: R19.7 Diarrhea, unspecified (principal); I25.10 Atherosclerotic heart disease of native coronary artery without angina pectoris; I10 Essential (primary) hypertension; I25.2 Old myocardial infarction; K21.9 Gastro-esophageal reflux disease without esophagitis; E03.9 Hypothyroidism, unspecified; Z88.6 Allergy status to analgesic agent; Z88.1 Allergy status to other antibiotic agents; Z88.5 Allergy status to narcotic agent; Z88.2 Allergy status to sulfonamides; Z91.018 Allergy to other foods; Z88.8 Allergy status to other drugs, medicaments and biological substances; Z79.899 Other long term (current) drug therapy
CPT/HCPCS: 36415; 80053; 83735; 85007; 85027; 99284; A9270; 99283

== ENCOUNTER 2022-03-19 16:30 | Emergency (ER) | payer MEDICARE, BC ==
[2022-03-19 18:15] LABS: ESTIMATED GFR 63 mL/min (>60)
[2022-03-19] MEDS ORDERED: predniSONE 20 MG Tab PO ONE (18:50)
[2022-03-19 19:13] VITALS: BP 144/72; PULSE 59
== END 2022-03-19 19:15 | disposition home or self-care (01) ==
LOC: JD.ED 16:30
DX: M79.602 Pain in left arm (principal); I25.10 Atherosclerotic heart disease of native coronary artery without angina pectoris; E78.00 Pure hypercholesterolemia, unspecified; I10 Essential (primary) hypertension; I25.2 Old myocardial infarction; K21.9 Gastro-esophageal reflux disease without esophagitis; E03.9 Hypothyroidism, unspecified; Z88.8 Allergy status to other drugs, medicaments and biological substances; Z88.1 Allergy status to other antibiotic agents; Z88.2 Allergy status to sulfonamides; Z88.5 Allergy status to narcotic agent; Z79.899 Other long term (current) drug therapy
CPT/HCPCS: 36415; 71046; 73030; 80053; 84484; 85025; 86140; 93005; 99284; J7512

== ENCOUNTER 2023-01-16 04:57 | Emergency (ER) | payer MEDICARE, BC ==
[2023-01-16] MEDS ORDERED: Sodium Chloride 0.9% 10 ML Syringe FLUSH PRN (05:07)
[2023-01-16 05:26] LABS: BASOPHILS ABSOLUTE AUTO 0.1 K/mm3 (0.0-0.2); BASOPHILS PERCENT AUTO 1.2 % (0.0-1.0); EOSINOPHILS ABSOLUTE AUTO 0.2 K/mm3 (0.0-0.4); HEMATOCRIT 43.1 % (37.0-47.0); HEMOGLOBIN 14.2 gm/dl (12.0-16.0); IMMATURE GRAN ABSOLUTE AUTO 0.04 K/mm3 (0.00-0.05); IMMATURE GRAN PERCENT AUTO 0.5 % (0.0-0.4); LYMPHOCYTES ABSOLUTE AUTO 2.4 K/mm3 (1.0-4.8); LYMPHOCYTES PERCENT AUTO 31.6 % (24.0-44.0); MEAN CORPUSCULAR HEMOGLOBIN 29.2 pg (28.0-32.0); MEAN CORPUSCULAR HGB CONC 32.9 g/dl (32.0-36.0); MEAN CORPUSCULAR VOLUME 88.5 fl (83.0-99.0); MEAN PLATELET VOLUME 10.6 fl (9.4-12.3); MONOCYTES ABSOLUTE AUTO 0.8 K/mm3 (0.0-0.8); MONOCYTES PERCENT AUTO 10.1 % (0.0-8.0); NEUTROPHILS ABSOLUTE AUTO 4.1 K/mm3 (1.8-7.7); NEUTROPHILS PERCENT AUTO 54.6 % (41.0-71.0); PLATELET COUNT,PLT 209 K/mm3 (150-400); RED BLOOD CELL COUNT 4.87 M/mm3 (4.10-5.30); WHITE BLOOD CELL COUNT,WBC 7.56 K/mm3 (3.9-11.3)
[2023-01-16 05:46] LABS: A/G RATIO 1.1 (1-2); ALBUMIN 3.4 g/dl (3.4-5.0); BILIRUBIN TOTAL 0.5 mg/dL (0.2-1.0); CALCIUM 9.4 mg/dL (8.5-10.1); CREATININE 0.9 mg/dL (0.55-1.02); EST CRCL DRUG DOSING (CG) 39.46 mL/min; MAGNESIUM 1.7 mg/dL (1.8-2.4); PROTEIN TOTAL,TP 6.6 g/dl (6.4-8.2)
[2023-01-16 05:50] VITALS: PULSE 50
[2023-01-16 06:18] LABS: APPEARANCE,URINE CLEAR (Clear); BILIRUBIN,URINE NEGATIVE (Negative); COLOR,URINE YELLOW (Yellow); GLUCOSE,URINE NEGATIVE (Negative); KETONES,URINE NEGATIVE (Negative); LEUKOCYTE ESTERASE,URINE 2+ (Negative); NITRITE,URINE NEGATIVE (Negative); OCCULT BLOOD,URINE NEGATIVE (Negative); PROTEIN,URINE NEGATIVE (Negative); UROBILINOGEN,URINE 0.2 (0.2-1.0)
[2023-01-16 06:30] LABS: BACTERIA,URINE RARE /hpf (FEW); EPITHELIAL CELLS,URINE 0-5 /hpf (0-5); MUCUS,URINE NOT SEEN /hpf (FEW); RBC,URINE 0-5 /hpf (0-5); RENAL EPITHELIAL CELLS,URINE 0-5 /hpf (0-5); WBC,URINE 0-5 /hpf (0-5)
[2023-01-16 06:47] VITALS: BP 124/74
== END 2023-01-16 06:40 | disposition home or self-care (01) ==
LOC: JD.ED 04:57
DX: M94.0 Chondrocostal junction syndrome [Tietze] (principal); I25.10 Atherosclerotic heart disease of native coronary artery without angina pectoris; E78.00 Pure hypercholesterolemia, unspecified; I10 Essential (primary) hypertension; I25.2 Old myocardial infarction; K21.9 Gastro-esophageal reflux disease without esophagitis; E03.9 Hypothyroidism, unspecified; Z88.2 Allergy status to sulfonamides; Z88.5 Allergy status to narcotic agent; Z88.1 Allergy status to other antibiotic agents; Z88.8 Allergy status to other drugs, medicaments and biological substances; Z91.048 Other nonmedicinal substance allergy status; Z79.899 Other long term (current) drug therapy
CPT/HCPCS: 36415; 71046; 80053; 81001; 83735; 84484; 85025; 93005; 99285; J3490; 93010; 99282

== ENCOUNTER 2023-06-13 12:03 | Emergency (ER) | payer MEDICARE, BC ==
[2023-06-13 12:41] LABS: BASOPHILS ABSOLUTE AUTO 0.1 K/mm3 (0.0-0.2); BASOPHILS PERCENT AUTO 0.5 % (0.0-1.0); EOSINOPHILS ABSOLUTE AUTO 0.2 K/mm3 (0.0-0.4); EOSINOPHILS PERCENT AUTO 2.2 % (0.0-6.0); HEMATOCRIT 43.2 % (37.0-47.0); IMMATURE GRAN ABSOLUTE AUTO 0.08 K/mm3 (0.00-0.05); IMMATURE GRAN PERCENT AUTO 0.7 % (0.0-0.4); LYMPHOCYTES ABSOLUTE AUTO 1.5 K/mm3 (1.0-4.8); MEAN CORPUSCULAR HEMOGLOBIN 28.5 pg (28.0-32.0); MEAN CORPUSCULAR HGB CONC 32.4 g/dl (32.0-36.0); MEAN PLATELET VOLUME 10.3 fl (9.4-12.3); MONOCYTES PERCENT AUTO 9.4 % (0.0-8.0); NEUTROPHILS ABSOLUTE AUTO 7.9 K/mm3 (1.8-7.7); NEUTROPHILS PERCENT AUTO 73.2 % (41.0-71.0); PLATELET COUNT,PLT 229 K/mm3 (150-400); RED BLOOD CELL COUNT 4.91 M/mm3 (4.10-5.30); WHITE BLOOD CELL COUNT,WBC 10.75 K/mm3 (3.9-11.3)
[2023-06-13] MEDS: Sodium Chloride 0.9% 10 ML Syringe FLUSH PRN (12:46)
[2023-06-13 13:03] LABS: A/G RATIO 1.2 (1-2); ALBUMIN 3.7 g/dl (3.4-5.0); BILIRUBIN TOTAL 0.7 mg/dL (0.2-1.0); BUN/CREATININE RATIO 17.8 (14-18); C-REACTIVE PROTEIN 0.15 mg/dL (<0.30); CALCIUM 9.1 mg/dL (8.5-10.1); CREATININE 0.9 mg/dL (0.55-1.02); EST CRCL DRUG DOSING (CG) 38.75 mL/min; PROTEIN TOTAL,TP 6.9 g/dl (6.4-8.2)
[2023-06-13 13:35] LABS: ANION GAP 11.3 (5-15); POTASSIUM,K 4.3 mEq/L (3.5-5.1)
[2023-06-13] MEDS: Iopamidol 612 MG/ML 100 ML Bottle IVPUSH ONE (13:40)
[2023-06-13] MEDS: Sodium Chloride 0.9% 10 ML Syringe FLUSH ONE (13:40)
[2023-06-13 15:02] VITALS: BP 129/60; PULSE 67
== END 2023-06-13 15:04 | disposition home or self-care (01) ==
LOC: JD.ED 12:03
DX: K52.9 Noninfective gastroenteritis and colitis, unspecified (principal); K21.9 Gastro-esophageal reflux disease without esophagitis; I10 Essential (primary) hypertension; I25.10 Atherosclerotic heart disease of native coronary artery without angina pectoris; I25.2 Old myocardial infarction; E78.00 Pure hypercholesterolemia, unspecified; E03.9 Hypothyroidism, unspecified; Z88.1 Allergy status to other antibiotic agents; Z88.5 Allergy status to narcotic agent; Z88.6 Allergy status to analgesic agent; Z88.2 Allergy status to sulfonamides; Z91.018 Allergy to other foods; Z88.8 Allergy status to other drugs, medicaments and biological substances; Z79.899 Other long term (current) drug therapy; Z90.49 Acquired absence of other specified parts of digestive tract
CPT/HCPCS: 36415; 71046; 71260; 74177; 80053; 83690; 84484; 85025; 85379; 86140; 93005; 99285; J3490; Q9967; 93010; 99284